=== PATIENT | female | born 1960 ===

== ENCOUNTER 2018-02-05 08:52 | Emergency (ER) | payer OTHER ==
[2018-02-05 09:13] VITALS: BP 142/87; PULSE 71; RESP 20; TEMP 97.8; O2SAT 99
--- NOTE | 2018-02-05 09:33 | C.PDOC ---
History Of Present Illness Patient is a 57 y/o F presenting with 4 day history of sore throat. She reports some non-productive cough during this time. Denies chest pain, shortness of breath, ear pain, fever, nausea/vomiting, change in voice, or difficulty swallowing. Time Seen by Provider: 02/05/18 09:13 Chief Complaint (Nursing): ENT Problem Past Medical History Vital Signs: Last Vital Signs Temp 97.8 F 02/05/18 09:09 Pulse 71 02/05/18 09:09 Resp 20 02/05/18 09:09 BP 142/87 02/05/18 09:09 Pulse Ox 99 02/05/18 11:07 Family History: States: No Known Family Hx - Social History Hx Alcohol Use: No Hx Substance Use: No - Immunization History Hx Tetanus Toxoid Vaccination: No Hx Influenza Vaccination: No Hx Pneumococcal Vaccination: (unk) Review Of Systems Constitutional: Negative for: Fever Eyes: Negative for: Pain, Vision Change, Conjunctivae Inflammation, Eyelid Inflammation ENT: Positive for: Throat Pain. Negative for: Ear Pain, Ear Discharge, Nose Discharge, Throat Swelling Cardiovascular: Negative for: Chest Pain, Palpitations Respiratory: Positive for: Cough. Negative for: Shortness of Breath, Hemoptysis , SOB with Excertion, Pleuritic Pain, Sputum, Wheezing Gastrointestinal: Negative for: Nausea, Vomiting, Abdominal Pain, Diarrhea Musculoskeletal: Negative for: Neck Pain Neurological: Negative for: Weakness, Numbness, Headache Physical Exam - Physical Exam Appears: Well, Non-toxic, No Acute Distress Skin: Normal Color, Warm, Dry Head: Atraumatic, Normacephalic Eye(s): bilateral: Normal Inspection, PERRL, EOMI Ear(s): Bilateral: Normal Nose: Normal Oral Mucosa: Moist Tongue: Normal Appearing Lips: Normal Appearing Teeth: Normal Dentition Gingiva: No Swelling, No Abscess Throat: Erythema (scant), No Exudate, No Drooling, No Mass Neck: Normal, Normal ROM, Supple, Other (no tender or enlarged cervical LAD) Chest: Symmetrical, No Tenderness Cardiovascular: Rhythm Regular Respiratory: Normal Breath Sounds Extremity: Normal ROM Neurological/Psych: Oriented x3, Normal Motor Gait: Steady ED Course And Treatment O2 Sat by Pulse Oximetry: 99 Medical Decision Making Medical Decision Makin:13AM Strep negative. Patient is well appearing, tolerating po and afebrile. Instructed to take motrin for viral pharyngitis. Centor criteria: -1 Disposition - Disposition Referrals: [facility] [Outside] Disposition: HOME/ ROUTINE Disposition Time: 11:05 Condition: GOOD Additional Instructions: Follow-up with PMD within 2 days. Return to ED if condition worsens. Motrin for pain Instructions: Viral Pharyngitis Forms: [employer] (Croatian) Print Language: IRISH - Clinical Impression Clinical Impression: Pharyngitis
== END 2018-02-05 11:22 | disposition home or self-care (01) ==
LOC: C.ER 08:52
DX: J02.9 Acute pharyngitis, unspecified (principal)
CPT/HCPCS: 87070; 87430; 96372; 99282; J1885

== ENCOUNTER 2018-02-23 10:29 | Emergency (ER) | payer OTHER ==
[2018-02-23 10:44] VITALS: BP 144/86; PULSE 77; TEMP 98.1; O2SAT 97
--- NOTE | 2018-02-23 11:02 | C.PDOC ---
History Of Present Illness 57 y/o female presents to the ER complaining of sore throat and non-productive cough present for the past 1 week. Patient is also complaining of redness with clear discharge in her right eye which has been present for the past 2 days. She denies fever, chills, runny nose, CP, SOB, and visual changes, injuries. Patient is also requesting medication refills, states she came from the [place] 7 months ago and does not have PMD here. Time Seen by Provider: 02/23/18 10:52 Chief Complaint (Nursing): ENT Problem History Per: Patient History/Exam Limitations: None Onset/Duration Of Symptoms: Days Current Symptoms Are (Timing): Still Present Severity: Mild Past Medical History Reviewed: Historical Data, Nursing Documentation, Vital Signs Vital Signs: Last Vital Signs Temp 98.1 F 02/23/18 10:43 Pulse 77 02/23/18 10:43 Resp BP 144/86 02/23/18 10:43 Pulse Ox 97 02/23/18 14:11 - Medical History PMH: HTN Surgical History: Family History: States: No Known Family Hx - Social History Hx Alcohol Use: No Hx Substance Use: No - Immunization History Hx Tetanus Toxoid Vaccination: No Hx Influenza Vaccination: No Hx Pneumococcal Vaccination: (unk) Review Of Systems Constitutional: Negative for: Fever, Chills Eyes: Positive for: Redness (right eye ). Negative for: Pain, Vision Change ENT: Positive for: Throat Pain. Negative for: Ear Pain, Nose Discharge, Nose Congestion Cardiovascular: Negative for: Chest Pain Respiratory: Negative for: Cough, Shortness of Breath Gastrointestinal: Negative for: Nausea, Vomiting, Abdominal Pain, Diarrhea Skin: Negative for: Rash Neurological: Negative for: Headache, Dizziness Physical Exam - Physical Exam Appears: Well, Non-toxic, No Acute Distress Skin: Normal Color, Warm, Dry, No Rash Head: Normacephalic Eye(s): bilateral: PERRL, EOMI, right: Other (mild scleral injection with clear discharge), left: Normal Inspection Oral Mucosa: Moist Throat: Erythema (mild), No Exudate, No Drooling, Other (uvula midline and normal in appearance, no lesions) Neck: Supple Cardiovascular: Rhythm Regular Respiratory: Normal Breath Sounds, No Rales, No Rhonchi, No Wheezing Neurological/Psych: Oriented x3 ED Course And Treatment O2 Sat by Pulse Oximetry: 97 (RA) Pulse Ox Interpretation: Normal Progress Note: Patient given PO Ibuprofen and Tesslon for viral URI. Rxs for Ibuprofen, eye drops, chloraseptic spray given, as well as for her chronic medications. Patient understands that in the future she needs to obtain medications from medical clinic. She was instructed to follow up with them in 1 -2 days, and understands she should return to ED if symptoms worsen. Disposition Counseled Patient/Family Regarding: Diagnosis, Need For Followup, Rx Given - Disposition Referrals: [facility] [Outside] Qasim Hui [Staff Provider] - Disposition: HOME/ ROUTINE Disposition Time: 11:00 Condition: STABLE Additional Instructions: FOLLOW UP WITH MEDICAL CLINIC IN 1-2 DAYS USE MEDICATIONS DIRECTED RETURN TO EMERGENCY ROOM IF SYMPTOMS WORSEN SEGUIMIENTO CON CLNICA MDICA EN 1-2 LOO USE MEDICAMENTOS SEGN LO INDICADO REGRESE AL RAMBO DE EMERGENCIA SI LOS SNTOMAS EMPEORAN Prescriptions: Bisoprolol [Zebeta] 10 mg PO DAILY #7 tab Ibuprofen [Motrin Tab] 600 mg PO Q6 PRN #30 tab PRN Reason: fever/pain Losartan [Cozaar] 1 tab PO DAILY #7 tab Ofloxacin Ophth 0.3% [Ocuflox Ophth 0.3%] 1 drop GT Q4 #1 bottle Phenol/Glycerin [Chloraseptic Max Wildwood] 1 spray MM Q6 PRN #1 spray PRN Reason: THROAT PAIN Forms: [employer] (Icelandic) Print Language: CHINESE - Clinical Impression Clinical Impression: Viral upper respiratory illness, Medication refill - Scribe Statement The provider has reviewed the documentation as recorded by the Scribe Sophy Diaz Provider Attestation: All medical record entries made by the Scribe were at my direction and personally dictated by me. I have reviewed the chart and agree that the record accurately reflects my personal performance of the history, physical exam, medical decision making, and the department course for this patient. I have also personally directed, reviewed, and agree with the discharge instructions and disposition.
== END 2018-02-23 11:15 | disposition home or self-care (01) ==
LOC: C.ER 10:29
DX: J06.9 Acute upper respiratory infection, unspecified (principal); Z76.0 Encounter for issue of repeat prescription

== ENCOUNTER 2018-05-06 08:44 | Emergency (ER) | payer OTHER ==
[2018-05-06 09:01] VITALS: BP 174/97; PULSE 66; RESP 18; TEMP 98.7; O2SAT 99
--- NOTE | 2018-05-06 09:33 | C.PDOC ---
History Of Present Illness Patient reports right knee pain without any injury, cannot quantify for how long, states more than two weeks but less than a month. Able to ambulate. No other extremity pain. She has not tried any pain medication at home. Time Seen by Provider: 05/06/18 08:54 Chief Complaint (Nursing): Lower Extremity Problem/Injury Past Medical History Vital Signs: Last Vital Signs Temp 98.7 F 05/06/18 08:59 Pulse 66 05/06/18 08:59 Resp 18 05/06/18 08:59 BP 174/97 H 05/06/18 08:59 Pulse Ox 99 05/06/18 08:59 - Medical History PMH: HTN Surgical History: Other Surgeries: L knee surgery Family History: States: Unknown Family Hx - Social History Hx Alcohol Use: No Hx Substance Use: No - Immunization History Hx Tetanus Toxoid Vaccination: No Hx Influenza Vaccination: No Hx Pneumococcal Vaccination: (unk) Review Of Systems Except As Marked, All Systems Reviewed And Found Negative. Constitutional: Negative for: Fever Cardiovascular: Negative for: Chest Pain Respiratory: Negative for: Shortness of Breath Gastrointestinal: Negative for: Nausea, Vomiting Musculoskeletal: Positive for: Leg Pain (R knee) Neurological: Negative for: Weakness, Numbness Physical Exam - Physical Exam Appears: Well, Non-toxic Head: Atraumatic Eye(s): bilateral: Normal Inspection Chest: Symmetrical Cardiovascular: Rhythm Regular Respiratory: Normal Breath Sounds Gastrointestinal/Abdominal: Normal Exam Extremity: Normal ROM, Tenderness (Minimal R medial knee), No Deformity, Other (R knee iwth no effusion, swelling, or erythema. No limited ROM. 2+ b/l DP pulses. L knee with well-healed surgical incision.) Neurological/Psych: Cerebellar Signs ED Course And Treatment O2 Sat by Pulse Oximetry: 99 - Other Rad R knee X-Ray: Read By Radiologist Interpretation: Accession No. : [id number]. Patient Name / ID : KATHLEEN MURPHY / [id number]. Exam Date : 05/06/2018 09:43:21 ( Approved ). Study Comment : Sex / Age : F / 57Y. Creator : John Agrawal MD. Dictator : John Agrawal MD. Framing Specialist : Speech Therapist : John Agrawal MD. Approver2 : Report Date : 05/06/2018 10:13:39. My Comment : . Date of service: 05/06/2018. PROCEDURE: Right Knee Radiographs. HISTORY: pain. COMPARISON: None. FINDINGS: BONES: Normal. No fracture. JOINTS: Medial and patellofemoral osteoarthritis with compartment narrowing. There is subchondral sclerosis of the medial tibial condyle. There are no articular erosions. The lateral compartment is preserved. JOINT EFFUSION: None. OTHER FINDINGS: None. IMPRESSION: Medial and patellofemoral osteoarthritis. Medical Decision Making Medical Decision Making: Patient given 600mg motrin PO for pain. XR done showing arthritis. Advised NSAIDs at home and following up with PMD. Disposition - Disposition Disposition: HOME/ ROUTINE Disposition Time: 10:26 Condition: GOOD Forms: [employer] (Pashto) - Clinical Impression Clinical Impression: Arthritis of knee, right
--- NOTE | 2018-05-06 10:17 | RAD ---
Date of service: 05/06/2018 PROCEDURE: Right Knee Radiographs. HISTORY: pain COMPARISON: None. FINDINGS: BONES: Normal. No fracture. JOINTS: Medial and patellofemoral osteoarthritis with compartment narrowing. There is subchondral sclerosis of the medial tibial condyle. There are no articular erosions. The lateral compartment is preserved. JOINT EFFUSION: None. OTHER FINDINGS: None. IMPRESSION: Medial and patellofemoral osteoarthritis.
== END 2018-05-06 10:39 | disposition home or self-care (01) ==
LOC: C.ER 08:44
DX: M17.11 Unilateral primary osteoarthritis, right knee (principal)

== ENCOUNTER 2018-10-09 08:59 | Emergency (ER) | payer OTHER ==
[2018-10-09 09:21] VITALS: BP 174/89; PULSE 60; RESP 20; TEMP 98.1; O2SAT 98
[2018-10-09] MEDS ORDERED: Naproxen 550 mg Tab PO STA (09:30)
[2018-10-09] MEDS ORDERED: Lidocaine 5% Patch TD STA (09:35)
[2018-10-09 09:42] LABS: SQUAMOUS EPITHIAL 1 /hpf (0-5); URINE BILIRUBIN NEGATIVE (NEGATIVE); URINE BLOOD 2+ (NEGATIVE); URINE CLARITY Hazy (Clear); URINE COLOR Yellow (YELLOW); URINE GLUCOSE (UA) NORMAL (Normal); URINE LEUKOCYTE ESTERASE TRACE Leu/uL (Negative); URINE PROTEIN 1+ mg/dL (NEGATIVE); URINE UROBILINOGEN NORMAL mg/dL (0.2-1.0)
[2018-10-09] MEDS ORDERED: Naproxen 550 mg Tab PO ONE (09:45)
[2018-10-09] MEDS ORDERED: Lidocaine 5% Patch TD ONE (09:45)
--- NOTE | 2018-10-09 10:01 | C.PDOC ---
History Of Present Illness Patient is a 58 year old female who presents to the ED for evaluation of non- radiating left lumbar back pain with associated dysuria for the past 3 days. Patient denies any falls, injuries, radiation of pain, fever, abdominal pain, nausea, vomiting, or diarrhea. Time Seen by Provider: 10/09/18 09:09 Chief Complaint (Nursing): Back Pain History Per: Patient History/Exam Limitations: no limitations Onset/Duration Of Symptoms: Days (3) Current Symptoms Are (Timing): Still Present Quality Of Discomfort: "Pain" (left lumbar back pain ) Associated Symptoms: Other (dysuria) Recent travel outside of the [place]: No Additional History Per: Patient Past Medical History Reviewed: Historical Data, Nursing Documentation, Vital Signs Vital Signs: Last Vital Signs Temp 98.1 F 10/09/18 09:02 Pulse 60 10/09/18 09:02 Resp 20 10/09/18 09:02 BP 174/89 H 10/09/18 09:02 Pulse Ox 98 10/09/18 09:02 - Medical History PMH: HTN Surgical History: Family History: States: Unknown Family Hx - Social History Hx Alcohol Use: No Hx Substance Use: No - Immunization History Hx Tetanus Toxoid Vaccination: No Hx Influenza Vaccination: No Hx Pneumococcal Vaccination: (unk) Review Of Systems Constitutional: Negative for: Fever Gastrointestinal: Negative for: Nausea, Vomiting, Abdominal Pain, Diarrhea Genitourinary: Positive for: Dysuria Musculoskeletal: Positive for: Back Pain (left lumbar nonradiating) Physical Exam - Physical Exam Appears: Non-toxic, No Acute Distress Skin: Normal Color, Warm, Dry, No Rash Head: Atraumatic, Normacephalic Cardiovascular: Rhythm Regular, No Murmur Respiratory: Normal Breath Sounds, No Rales, No Rhonchi, No Wheezing Gastrointestinal/Abdominal: Soft, No Tenderness, No Guarding, No Rebound Back: No CVA Tenderness, Paraspinal Tenderness (lumbar spine L2-L4 level) Neurological/Psych: Oriented x3, Normal Sensation (bilateral legs) Gait: Steady ED Course And Treatment - Laboratory Results Lab Results: Urine Color Yellow (YELLOW) 10/09/18 09:30 Urine Clarity Hazy (Clear) 10/09/18 09:30 Urine pH 5.0 (5.0-8.0) 10/09/18 09:30 Ur Specific [place] 1.021 (1.003-1.030) 10/09/18 09:30 Urine Protein 1+ mg/dL (NEGATIVE) H 10/09/18 09:30 Urine Glucose (UA) Normal mg/dL (Normal) 10/09/18 09:30 Urine Ketones Negative mg/dL (NEGATIVE) 10/09/18 09:30 Urine Blood 2+ (NEGATIVE) H 10/09/18 09:30 Urine Nitrate Negative (NEGATIVE) 10/09/18 09:30 Urine Bilirubin Negative (NEGATIVE) 10/09/18 09:30 Urine Urobilinogen Normal mg/dL (0.2-1.0) 10/09/18 09:30 Ur Leukocyte Esterase Trace Steffen/uL (Negative) 10/09/18 09:30 Urine WBC (Auto) 4 /hpf (0-5) 10/09/18 09:30 Urine RBC (Auto) 13 /hpf (0-3) H 10/09/18 09:30 Ur Squamous Epith Cells 1 /hpf (0-5) 10/09/18 09:30 O2 Sat by Pulse Oximetry: 98 (on RA) Pulse Ox Interpretation: Normal Progress Note: Patient with lumbar pain, (+) TTP, c/o mild dysuria. UA is hazy, shows RBCs , blood, trace leuk. Patient is comfortable appearing, without flank/cva tenderness. Do not suspect kidney stone. Will treat for musculoskeletal back pain + possible mild UTI. Plan: Urinalysis. Urine Culture. Macrobid 100mg PO. Anaprox 550mg PO. Lidoderm 1ea TD. Treated for UTI. Disposition Counseled Patient/Family Regarding: Studies Performed, Diagnosis, Need For Followup, Rx Given - Disposition Referrals: [facility] [Outside] Disposition: HOME/ ROUTINE Disposition Time: 10:00 Condition: STABLE Additional Instructions: FOLLOW UP WITH YOUR DOCTOR/CLINIC IN 1-2 DAYS USE MEDICATIONS DIRECTED RETURN TO EMERGENCY ROOM IF YOUR SYMPTOMS BECOME WORSE SEGUIR CON MEDEL MDICO / CLNICA EN 1-2 LOO UTILICE MEDICAMENTOS STEVE SE DIRIGE VUELVA A LA RAMBO DE EMERGENCIA SI EDILSON SNTOMAS SE HACEN PEOR Prescriptions: Cyclobenzaprine [Flexeril] 10 mg PO BID PRN #15 tab PRN Reason: Muscle Spasm Naproxen 375 mg PO BID PRN #20 tablet PRN Reason: pain Nitrofurantoin Macrocrystals [Macrobid] 1 cap PO BID #14 cap Instructions: Low Back Pain (DC), Urinary Tract Infection, Adult (DC) Forms: [employer] (Thai) Print Language: LATVIAN - Clinical Impression Clinical Impression: Low back pain, Lumbar sprain, UTI (urinary tract infection) - Scribe Statement The provider has reviewed the documentation as recorded by the Heathibtyler Monte All medical record entries made by the Heathibtyler were at my direction and personally dictated by me. I have reviewed the chart and agree that the record accurately reflects my personal performance of the history, physical exam, medical decision making, and the department course for this patient. I have also personally directed, reviewed, and agree with the discharge instructions and disposition.
== END 2018-10-09 10:15 | disposition home or self-care (01) ==
LOC: C.ER 08:59
DX: N39.0 Urinary tract infection, site not specified (principal); S33.5XXA Sprain of ligaments of lumbar spine, initial encounter; X58.XXXA Exposure to other specified factors, initial encounter; M54.5 Low back pain